=== PATIENT | male | born 1940 | race Caucasian/White ===

== ENCOUNTER 2021-07-21 12:57 | Outpatient (CLI) | payer MEDICARE | END 2021-07-21 12:58 | disposition home or self-care (01) | LOC: CSHRAD 12:57 | PROVIDERS: ATTEND Family Medicine | DX: R05.9 Cough, unspecified (principal); M25.511 Pain in right shoulder; R91.8 Other nonspecific abnormal finding of lung field | CPT/HCPCS: 71046 ==